=== PATIENT | female | born 1965 | race Caucasian/White ===

== ENCOUNTER → 2016-07-18 | Outpatient (CLI) | payer OTHER ==
[~2016-07-18] VITALS: Ht 170.2 cm; Wt 117.7 kg
[~2016-07-18] MED LIST: AMBIEN 10MG10 MG PO; B-12 PO; CELEXA 20MG20 MG/TAB PO; LORATADINE10 MG PO; MULTIVITAMIN FO1 CAP PO; NORCO 325 MG-7.1 TAB PO; PEN-VEE K500 MG PO; PRILOSEC 20MG20 MG PO; ZANTAC 7575 MG PO; ZYRTEC 10MG10 MG PO; vitamin D PO
[2016-07-18 14:20] VITALS: BP 120/68; PULSE 80
[2016-07-18 15:20] VITALS: BP 120/68; PULSE 80
== END ==
LOC: LIGHT 09:03
DX: Z98.84 Bariatric surgery status (principal); E66.01 Morbid (severe) obesity due to excess calories; Z68.41 Body mass index [BMI] 40.0-44.9, adult

== ENCOUNTER 2016-08-01 13:37 | Outpatient (RCR) | payer OTHER ==
[~2016-08-01 13:37] MED LIST changes: -MULTIVITAMIN FO1 CAP PO; -PEN-VEE K500 MG PO; -ZANTAC 7575 MG PO
[2016-09-26] MEDS ORDERED: ZANTAC 7575 MG PO (14:49)
[2016-11-07] MEDS ORDERED: PEN-VEE K500 MG PO (14:57)
[2016-11-07] MEDS ORDERED: MULTIVITAMIN FO1 CAP PO (14:58)
== END 2016-10-30 ==
LOC: WSOH
DX: Z77.21 Contact with and (suspected) exposure to potentially hazardous body fluids (principal); Y99.0 Civilian activity done for income or pay

== ENCOUNTER → 2016-08-01 | Outpatient (REF) | LOC: WSOH 13:45 | DX: Z02.89 Encounter for other administrative examinations (principal) ==

== ENCOUNTER 2016-08-09 09:58 | Day surgery (SDC) | payer OTHER ==
[2016-08-09] VITALS (10 sets, daily range): BP systolic 122–145; BP diastolic 62–81; PULSE 53–79; TEMP 97.7–98.4
[~2016-08-09] VITALS: Ht 170.2 cm; Wt 109.6 kg
[2016-08-10 01:24] VITALS: BP 118/74; PULSE 65; TEMP 98.5
[2016-08-10 05:30] VITALS: BP 132/69; PULSE 71; TEMP 98.7
[2016-08-10 09:48] VITALS: BP 133/74; PULSE 71; TEMP 98.2
[2016-08-10 13:16] VITALS: BP 134/80; PULSE 73; TEMP 99.4
[2016-11-07] MEDS ORDERED: PEN-VEE K500 MG PO (14:57)
[2016-11-07] MEDS ORDERED: MULTIVITAMIN FO1 CAP PO (14:58)
== END 2016-08-10 16:11 | disposition home or self-care (01) ==
LOC: SDCO 09:58 → SURG 14:14 → SDCO 08-10 16:11
DX: E66.01 Morbid (severe) obesity due to excess calories (principal); Z68.41 Body mass index [BMI] 40.0-44.9, adult; K29.50 Unspecified chronic gastritis without bleeding; E78.00 Pure hypercholesterolemia, unspecified; K21.9 Gastro-esophageal reflux disease without esophagitis
CPT/HCPCS: OP; J1170; J2250; J2405; J2550; J2704; J2765; J3010; J7042; J7120; Q9968

== ENCOUNTER → 2016-08-15 | Outpatient (CLI) | payer OTHER ==
[~2016-08-15] VITALS: Ht 170.2 cm; Wt 106.6 kg
[~2016-08-15] MED LIST changes: +MULTIVITAMIN FO1 CAP PO; +PEN-VEE K500 MG PO; +ZANTAC 7575 MG PO
[2016-08-15 14:45] VITALS: BP 121/57; PULSE 93
[2016-08-15 15:07] VITALS: BP 121/57; PULSE 93
== END ==
LOC: LIGHT 09:25
DX: Z98.84 Bariatric surgery status (principal); Z68.36 Body mass index [BMI] 36.0-36.9, adult

== ENCOUNTER → 2016-09-26 | Outpatient (CLI) | payer OTHER ==
[~2016-09-26] VITALS: Ht 170.2 cm; Wt 100.5 kg
[2016-09-26 14:49] VITALS: BP 103/51; PULSE 80
== END ==
LOC: LIGHT 14:40
DX: Z98.84 Bariatric surgery status (principal); Z68.34 Body mass index [BMI] 34.0-34.9, adult

== ENCOUNTER → 2016-11-07 | Outpatient (CLI) | payer OTHER ==
[~2016-11-07] VITALS: Ht 170.2 cm; Wt 96.4 kg
[2016-11-07 14:58] VITALS: BP 106/80; PULSE 65
== END ==
LOC: LIGHT 14:50
DX: Z98.84 Bariatric surgery status (principal); Z68.33 Body mass index [BMI] 33.0-33.9, adult

== ENCOUNTER → 2017-01-05 | Outpatient (REF) | LOC: WSOH 14:45 | DX: Z02.89 Encounter for other administrative examinations (principal) ==

== ENCOUNTER → 2017-01-30 | Outpatient (CLI) | payer OTHER ==
[2017-01-30 11:38] LABS: BASO # 0.1 (0.0-0.2); EOS # 0.3 (0.0-0.7); EOS % 2.5 % (0-4.0); GRAN # 7.2 (1.4-6.5); GRAN % 70.6 % (42.2-75.2); HEMATOCRIT 42.2 % (37.0-47.0); LYMPH # 1.9 (1.2-3.4); LYMPH % 18.2 % (20.0-51.0); MEAN CELL VOLUME 91 fl (80.0-100.0); MEAN CORPUSCULAR HEMOGLOBIN 30 pg (27.0-31.0); MEAN CORPUSCULAR HGB CONC 33 g/dl (33.0-37.0); MEAN PLATELET VOLUME 11.6 fl (7.4-10.4); MONO # 0.8 (0.1-0.6); MONO % 7.5 % (1.7-9.3); PLATELET COUNT 226 K/mm3 (130-400); RED BLOOD COUNT 4.66 M/mm3 (4.10-5.30); REDCELL DISTRIBUTION WIDTH-CV 13.3 % (11.5-14.5); WHITE BLOOD COUNT 10.2 K/mm3 (4.8-10.8)
[2017-01-30 11:47] LABS: ADJUSTED CALCIUM 9.4 mg/dL (8.4-10.2); ALBUMIN 4.2 gm/dL (3.5-5.0); BILIRUBIN,TOTAL 0.8 mg/dL (0.0-1.0); CALCIUM 9.6 mg/dL (8.4-10.2); CREATININE, serum 0.71 mg/dL (0.52-1.25); POTASSIUM 3.9 mmol/L (3.4-5.0); TOTAL PROTEIN 7.3 gm/dL (6.4-8.2)
== END ==
LOC: COL.LAB 10:17
PROVIDERS: Surgery
DX: Z01.89 Encounter for other specified special examinations (principal)

== ENCOUNTER → 2017-02-13 | Outpatient (CLI) | payer OTHER ==
[~2017-02-13] VITALS: Ht 170.2 cm; Wt 94.8 kg
[2017-02-13 14:20] VITALS: BP 98/66; PULSE 72
== END ==
LOC: LIGHT 14:18
DX: Z98.84 Bariatric surgery status (principal); Z68.32 Body mass index [BMI] 32.0-32.9, adult; Z71.3 Dietary counseling and surveillance

== ENCOUNTER → 2017-04-19 | Outpatient (CLI) | payer OTHER ==
[2017-04-19 08:48] LABS: ADJUSTED CALCIUM 9.3 mg/dL (8.4-10.2); ALBUMIN 4.2 gm/dL (3.5-5.0); BILIRUBIN,TOTAL 0.7 mg/dL (0.0-1.0); CALCIUM 9.5 mg/dL (8.4-10.2); CHOLESTEROL RISK RATIO 3.6; CREATININE, serum 0.79 mg/dL (0.52-1.25); POTASSIUM 3.7 mmol/L (3.4-5.0); TOTAL PROTEIN 7.3 gm/dL (6.4-8.2)
[2017-04-19 08:50] LABS: HEMATOCRIT 41.6 % (37.0-47.0); HEMOGLOBIN 13.6 g/dl (12.5-16.0); MEAN CELL VOLUME 91 fl (80.0-100.0); MEAN CORPUSCULAR HEMOGLOBIN 30 pg (27.0-31.0); MEAN CORPUSCULAR HGB CONC 33 g/dl (33.0-37.0); MEAN PLATELET VOLUME 11.7 fl (7.4-10.4); PLATELET COUNT 251 K/mm3 (130-400); RED BLOOD COUNT 4.56 M/mm3 (4.10-5.30); WHITE BLOOD COUNT 7.7 K/mm3 (4.8-10.8)
[2017-04-19 08:54] LABS: PH 6 (5-8); SQUAMOUS EPITHELIAL None Seen /hpf; URINE APPEARANCE Clear; URINE BACTERIA Rare /hpf; URINE BILIRUBIN Negative (NEGATIVE); URINE BLOOD 2+ (NEGATIVE); URINE COLOR Straw; URINE GLUCOSE Negative (NEGATIVE); URINE KETONE Negative (NEGATIVE); URINE LEUKOCYTE ESTERASE Negative (NEGATIVE); URINE PROTEIN(semi-quant) Negative (NEGATIVE); URINE RBC 0-2 /hpf; URINE UROBILINOGEN Negative (NEGATIVE); URINE WBC 0-2 /hpf
[2017-04-19 09:00] LABS: COLLECTION METHOD CLEAN CATCH
[2017-04-19 09:17] LABS: THYROID STIMULATING HORMONE 1.82 uIU/mL (0.465-4.680)
== END ==
LOC: COL.LAB 07:36
PROVIDERS: Internal Medicine
DX: Z00.00 Encounter for general adult medical examination without abnormal findings (principal)

== ENCOUNTER → 2017-05-04 | Outpatient (CLI) | payer OTHER | LOC: MC.RAD 13:17 | DX: N64.89 Other specified disorders of breast (principal) ==

== ENCOUNTER → 2018-06-05 | Outpatient (CLI) | payer OTHER | LOC: COL.RAD 09:33 | DX: R31.1 Benign essential microscopic hematuria (principal) ==

== ENCOUNTER 2019-05-17 08:55 | Day surgery (SDC) | payer OTHER ==
[~2019-05-17] VITALS: Ht 170.2 cm; Wt 85.9 kg
[2019-05-17 09:38] VITALS: BP 112/86; PULSE 63; TEMP 96.8
[2019-05-17] MEDS ORDERED: BUSPAR10 MG PO (09:46)
[2019-05-17] MEDS ORDERED: OTEZLA PO (09:46)
[2019-05-17 10:35] VITALS: BP 110/67; PULSE 63; TEMP 97.5
--- NOTE | 2019-05-17 10:35 | NUR ---
PT TO ENDO RM 4 VIA CART, WALKED TO CHAIR, IN ROOM, CALL LIGHT IN REACH, NO C/O, TAKES ICE CHIPS AND MUFFIN
[2019-05-17 10:50] VITALS: BP 110/76; PULSE 63
[2019-05-17 11:05] VITALS: BP 110/75; PULSE 65
--- NOTE | 2019-05-17 11:05 | NUR ---
INTO SEE PT AND
[2019-05-17 11:20] VITALS: BP 114/71; PULSE 66
--- NOTE | 2019-05-17 11:20 | NUR ---
IV D'CD INTACT, PT UP AND DRESSED, UP TO B/R, REVIEWED DISCHARGE INST. WITH PT ON ACTIVITY, PRECAUTIONS AND FOLLOWUP WITH VERBAL UNDERSTANDING. PT DISCHARGED VIA W/C TO CAR
== END 2019-05-17 11:20 | disposition home or self-care (01) ==
LOC: SDCO 08:55
DX: Z12.11 Encounter for screening for malignant neoplasm of colon (principal); Z88.8 Allergy status to other drugs, medicaments and biological substances; Z88.2 Allergy status to sulfonamides
CPT/HCPCS: J2250; J2405; J3010; J7030

== ENCOUNTER → 2019-06-25 | Outpatient (CLI) | payer OTHER ==
[~2019-06-25] MED LIST changes: +BUSPAR10 MG PO; +OTEZLA PO
== END ==
LOC: MC.RAD 10:44
DX: Z12.31 Encounter for screening mammogram for malignant neoplasm of breast (principal)

== ENCOUNTER → 2021-06-03 | Outpatient (CLI) | payer OTHER | LOC: MC.RAD 14:04 | DX: Z12.31 Encounter for screening mammogram for malignant neoplasm of breast (principal) ==

== ENCOUNTER → 2023-06-06 | Outpatient (CLI) | payer OTHER ==
[2023-06-06 09:03] LABS: BASO # 0.1 K/mm3 (0.0-0.2); BASO % 1.4 % (0.0-2.0); EOS # 0.2 K/mm3 (0.0-0.7); EOS % 3.8 % (0.0-4.0); GRAN # 2.9 K/mm3 (1.4-6.5); GRAN % 50.6 % (42.2-75.2); HEMOGLOBIN 11.3 g/dl (12.5-16.0); LYMPH % 34.4 % (20.0-51.0); MEAN CELL VOLUME 84 fl (80.0-100.0); MEAN CORPUSCULAR HEMOGLOBIN 26 pg (27-31); MEAN CORPUSCULAR HGB CONC 31 g/dl (33.0-37.0); MEAN PLATELET VOLUME 11.5 fl (7.4-10.4); MONO # 0.6 K/mm3 (0.1-0.6); MONO % 9.6 % (1.7-9.3); PLATELET COUNT 262 K/mm3 (130-400); RED BLOOD COUNT 4.38 M/mm3 (4.10-5.30); REDCELL DISTRIBUTION WIDTH-CV 15.6 % (11.5-14.5)
[2023-06-06 09:04] LABS: HEMATOCRIT 36.8 % (37.0-47.0)
[2023-06-06 09:19] LABS: ALBUMIN 3.8 gm/dL (3.5-5.0); BILIRUBIN,TOTAL 0.6 mg/dL (0.2-1.2); CALCIUM 9.3 mg/dL (8.4-10.2); CREATININE, serum 0.75 mg/dL (0.57-1.11); POTASSIUM 3.8 mmol/L (3.5-4.5); TOTAL PROTEIN 6.7 gm/dL (6.2-8.1)
== END ==
LOC: COL.LAB 08:20
PROVIDERS: Registered Nurse
DX: D64.9 Anemia, unspecified (principal); R74.8 Abnormal levels of other serum enzymes; E55.9 Vitamin D deficiency, unspecified